=== PATIENT | female | born 1955 | race Caucasian/White ===

== ENCOUNTER 2017-08-17 10:33 | Day surgery (SDC) | payer BC ==
[~2017-08-17] VITALS: Ht 154.9 cm; Wt 92.4 kg
[2017-08-17] VITALS (11 sets, daily range): BP systolic 98–115; BP diastolic 60–74
[2017-08-17] MEDS ORDERED: ASPI-128 (11:18)
[2017-08-17] MEDS ORDERED: MULT-1085 PO (11:18)
[2017-08-17] MEDS ORDERED: ACET-2319 PO (11:18)
[2017-08-17] MEDS ORDERED: OLME1TAB40 PO (11:18)
[2017-08-17] MEDS ORDERED: CITA40TA22 PO (11:18)
[2017-08-17] MEDS ORDERED: LORazepam 0.5 MG tablet PO PRN (11:20)
[2017-08-17] MEDS ORDERED: diphenhydrAMINE 25mg capsule PO PRN (11:20)
[2017-08-17] MEDS ORDERED: nitroGLYCERIN 0.4mg SUBLingual tab SL PRN ×2 (11:20→14:40)
[2017-08-17] MEDS ORDERED: normal saline 1000ml 1,000 ML IV SCH ×2 (11:20→14:35)
[2017-08-17 11:55] LABS: BASOPHILS % (AUTO) 0.5 % (0-1); EOSINOPHILS # (AUTO) 0.3 X10'3 (0-0.9); EOSINOPHILS % (AUTO) 4.5 % (0-6); HEMATOCRIT 39.9 % (35.0-45.0); HEMOGLOBIN 13.8 g/dl (12.0-16.0); LYMPHOCYTES # (AUTO) 1.9 X10'3 (1.1-4.8); LYMPHOCYTES % (AUTO) 24.3 % (21-51); MEAN CORPUSCULAR HEMOGLOBIN 30.4 PG (27.0-31.0); MEAN CORPUSCULAR HGB CONC 34.6 % (33.0-36.5); MEAN CORPUSCULAR VOLUME 87.9 FL (78-98); MEAN PLATELET VOLUME 8.7 FL (7.4-10.4); MONOCYTES # (AUTO) 0.6 X10'3 (0-0.9); MONOCYTES % (AUTO) 7.3 % (2-12); NEUTROPHILS # (AUTO) 4.9 X10'3 (1.8-7.7); NEUTROPHILS % (AUTO) 63.4 % (42-75); PLATELET COUNT 306 X10'3 (140-440); RED BLOOD COUNT 4.54 X10'6 (4.20-5.60); RED CELL DISTRIBUTION WIDTH 13.2 % (11.5-14.5); WHITE BLOOD COUNT 7.7 X10'3 (4.5-11.0)
[2017-08-17 12:04] LABS: ALBUMIN 4.2 G/DL (3.4-5.0); ANION GAP 10 (8-16); BLOOD UREA NITROGEN 23 MG/DL (7-18); BUN/CREATININE RATIO 28.8 (6.6-38.0); CHLORIDE 102 MMOL/L (99-107); GLUCOSE 121 MG/DL (70-104); POTASSIUM 3.2 MMOL/L (3.5-5.1); SODIUM 142 MMOL/L (135-145); eGFR 73 ML/MIN
[2017-08-17] MEDS ORDERED: iohexol 350 MG/ML 50ML vial IV ONE (12:36)
[2017-08-17] MEDS ORDERED: iohexol 350MG/ML 100ml bottle IV ONE (12:36)
[2017-08-17] MEDS ORDERED: LIDOcaine 1%/PF (10mg/ml) 5ml vial ONE (12:36)
[2017-08-17] MEDS ORDERED: fentaNYL/PF 50MCG/1 ML 2ML syringe ONE (12:36)
[2017-08-17] MEDS ORDERED: midazolam 2 mg/2 ml injection ONE (12:36)
[2017-08-17] MEDS ORDERED: HYDROcodone/acetaminophen 5mg/325mg tablet PO PRN (14:35)
[2017-08-17] MEDS ORDERED: ondansetron/PF 4mg/2ml inj IV PRN (14:35)
[2017-08-17] MEDS ORDERED: HYDROcodone/acetaminophen 10/325mg tab PO PRN (14:40)
[2017-08-17] MEDS ORDERED: proCHLORperazine 10 MG/2 ml inj IV PRN (14:40)
[2017-08-17] MEDS ORDERED: OXAZEpam 15mg capsule PO PRN (14:40)
== END 2017-08-17 20:00 | disposition home or self-care (01) ==
LOC: SSTAY O 10:33
PROVIDERS: ATTEND Internal Medicine Cardiovascular Disease
DX: I25.10 Atherosclerotic heart disease of native coronary artery without angina pectoris (principal); E66.01 Morbid (severe) obesity due to excess calories; J98.4 Other disorders of lung; G43.909 Migraine, unspecified, not intractable, without status migrainosus; I10 Essential (primary) hypertension; G89.29 Other chronic pain; Z68.38 Body mass index [BMI] 38.0-38.9, adult
CPT/HCPCS: 36415; 71046; 80048; 85025; 85610; 93458; A6257; C1760; C1769; J1644; J2001; J2250; J3010; J7030; Q0163; Q9967; 99152; 99153; A4620